=== PATIENT | male | born 1960 ===

== ENCOUNTER 2024-11-28 12:02 | Day surgery (SDC) | payer OTHER ==
[~2024-11-28] VITALS: Ht 182.9 cm; Wt 91.4 kg
[~2024-11-28 12:02] MED LIST: Balanced Salt Epinephrine Irrigation Solution 500 mL IR SCH; Moxifloxacin HCL 0.5 MG/0.1 ML 0.4MLSYR RIGHTEYE SCH; Ondansetron 4 MG SoluTab MM PRN; PHENYLEPHRINE\\TROPICAMIDE\\TETRACAINE OPHTHALMIC DILATING SOLN RIGHTEYE PRN; Povidone-Iodine 450 DROP/30 ML Solution ONE; Povidone-Iodine 450 DROP/30 ML Solution RIGHTEYE SCH; Tetracaine HCl/Pf 0.5% Opth Soln 4 ml ONE
[2024-11-28] MEDS ORDERED: ATOR40TA PO (12:21)
[2024-11-28] MEDS ORDERED: LOSA50 PO (12:21)
[2024-11-28] MEDS ORDERED: SYNTHROID75 MCG PO (12:22)
--- NOTE | 2024-11-28 12:55 | NUR ---
11/28/24 1255 Tangela Gilmore VITALS AT 1253 BP:160/104 P: 54 O2: 100% WITH 8 LITERS OF BLOW BY OXYGEN
--- NOTE | 2024-11-28 13:16 | NUR ---
11/28/24 1316 Judi Telles CALLED PARTNER AND INSTRUCTED TO PULL UP TO PATIENT [employer]
== END 2024-11-28 13:25 | disposition home or self-care (01) ==
LOC: ORSCSDS 12:02
PROVIDERS: Student in an Organized Health Care Education/Training Program
PROC: 08RJ3JZ Replacement of Right Lens with Synthetic Substitute, Percutaneous Approach (ICD-10-PCS; principal; 2024-11-28 13:30)
DX: H25.813 Combined forms of age-related cataract, bilateral (principal); Z79.899 Other long term (current) drug therapy
CPT/HCPCS: A9270; V2632

== ENCOUNTER 2024-12-05 07:34 | Day surgery (SDC) | payer OTHER ==
[~2024-12-05] VITALS: Ht 182.9 cm; Wt 91.9 kg
[~2024-12-05 07:34] MED LIST changes: +ATOR40TA PO; +LOSA50 PO; +Moxifloxacin HCL 0.5 MG/0.1 ML 0.4MLSYR LEFTEYE SCH; -Moxifloxacin HCL 0.5 MG/0.1 ML 0.4MLSYR RIGHTEYE SCH; +PHENYLEPHRINE\\TROPICAMIDE\\TETRACAINE OPHTHALMIC DILATING SOLN LEFTEYE PRN; -PHENYLEPHRINE\\TROPICAMIDE\\TETRACAINE OPHTHALMIC DILATING SOLN RIGHTEYE PRN; +Povidone-Iodine 450 DROP/30 ML Solution LEFTEYE SCH; -Povidone-Iodine 450 DROP/30 ML Solution RIGHTEYE SCH; +SYNTHROID75 MCG PO
--- NOTE | 2024-12-05 08:17 | NUR ---
12/05/24 0817 Irena Harman MD ORDERED ADDITIONAL DOSE OF 5MG PO VALIUM IN PREOP TO BE GIVEN NOW.
[2024-12-05] MEDS ORDERED: Tetracaine HCl 0.5% Opth Soln 15 ml LEFTEYE ONE (08:40)
--- NOTE | 2024-12-05 08:45 | NUR ---
12/05/24 0845 Juli Martinez 53 100% ON 10 L BLOW BY 127/ 18
== END 2024-12-05 09:09 | disposition home or self-care (01) ==
LOC: ORSCSDS 07:34
PROVIDERS: Student in an Organized Health Care Education/Training Program
PROC: 08RK3JZ Replacement of Left Lens with Synthetic Substitute, Percutaneous Approach (ICD-10-PCS; principal; 2024-12-05 09:00)
DX: H25.812 Combined forms of age-related cataract, left eye (principal); Z96.1 Presence of intraocular lens; Z79.899 Other long term (current) drug therapy
CPT/HCPCS: A9270; J2003; V2632